=== PATIENT | male | born 1985 | race Caucasian/White ===

== ENCOUNTER 2018-06-04 18:11 | Emergency (ER) | payer OTHER ==
[~2018-06-04] VITALS: Ht 185.4 cm; Wt 81.8 kg
[2018-06-04 18:34] VITALS: BP 143/91
[2018-06-04] MEDS ORDERED: LIDOCAINE/PF 1% 2 ML VIAL IM ONE (19:00)
[2018-06-04] MEDS ORDERED: ACETAMINOPHEN 500 MG TABLET PO ONE (19:00)
[2018-06-04] MEDS ORDERED: CefTRIAXone SODIUM 1 GM/VIAL IM ONE (19:00)
[2018-06-04] MEDS ORDERED: AZITHROMYCIN 250 MG TABLET PO ONE (19:00)
== END 2018-06-04 19:15 | disposition home or self-care (01) ==
LOC: EMS 18:13
DX: A64 Unspecified sexually transmitted disease (principal); R36.9 Urethral discharge, unspecified; F17.210 Nicotine dependence, cigarettes, uncomplicated; F20.9 Schizophrenia, unspecified; F19.90 Other psychoactive substance use, unspecified, uncomplicated; F12.90 Cannabis use, unspecified, uncomplicated
CPT/HCPCS: 96372; 99283; 99406; J0696; J3490

== ENCOUNTER 2022-05-13 17:25 | Emergency (ER) | payer OTHER ==
[~2022-05-13] VITALS: Ht 185.4 cm; Wt 72.7 kg
[2022-05-13 18:22] VITALS: BP 117/78
[2022-05-13] MEDS ORDERED: LIDOCAINE/PF 1% 2 ML VIAL IM ONE (19:15)
[2022-05-13] MEDS ORDERED: CefTRIAXone SODIUM 1 GM/VIAL IM ONE (19:15)
[2022-05-13] MEDS ORDERED: DOXY100C5 PO (19:34)
== END 2022-05-13 20:31 | disposition home or self-care (01) ==
LOC: EMS 17:29
DX: A64 Unspecified sexually transmitted disease (principal); R59.0 Localized enlarged lymph nodes; F17.210 Nicotine dependence, cigarettes, uncomplicated; F12.90 Cannabis use, unspecified, uncomplicated; F15.90 Other stimulant use, unspecified, uncomplicated; Z98.890 Other specified postprocedural states
CPT/HCPCS: 99283; 96372; J0696; J3490